=== PATIENT | female | born 1965 | race African-American/Black ===

== ENCOUNTER 2017-04-04 17:17 | Emergency (ER) | payer BC ==
--- NOTE | ~2017-04-04 | CR181 ---
[facility] A Service of [facility] & [facility] RADIOLOGY TEXT RESULTS PATIENT: JEROME BERTRAND LOCATION: [facility] : 65 UNIT #: [id number] AGE: [address]: Emile Myles MD SEX: F ORDER DR: [id number] [facility] [address] [place], [place] [address] [id number] E MR#: [id number] Acc #: [id number] NAME: JEROME BERTRAND : 1965 SEX: F STUDY DATE/TIME: 04/04/2017 20:56 UNIT: [facility] ROOM: STUDY DESCRIPTION: CR Lumbar Spine 2 or 3 Views Attending Physician: Emile Myles M.D. Ordering Physician: Emile Myles M.D. Primary Care Physician: Lelo Aceves M.D. MEDICAL IMAGING REPORT This report is preliminary unless electronic signature is present EXAM Lumbar spine series, 04/04/2017. HISTORY Lumbar spine pain, pain going through the right leg. Fell. Symptoms began December. TECHNIQUE AP and 2 lateral views of the lumbar spine are presented. Comparison 12/28/2016. FINDINGS Five lumbar-type vertebral segments with minimal levoscoliosis centered at the L3 level. New approximately 4 mm anterolisthesis L4 on L5. No acute fracture is clearly seen. There are moderate to marked facet degenerative changes at L4 - L5 and L5 - S1 with mild to moderate disc space narrowing L4-L5 and L5-S1. I favor that the anterolisthesis is degenerative in etiology. If it would assist in management, the spinal canal and neural foraminal contents could best be further evaluated with MRI if the patient is a candidate or CT. The vertebral body heights are normal. Other intervertebral disc space heights are normal. Again noted is a sclerotic change in the medial left iliac bone along the sacroiliac joints. No significant change in appearance from 12/28/2016 but etiology is unclear. I see no periosteal reaction or bony destruction. In the absence of risk factors, this may be a reflection of asymmetric degenerative change or sequelae of prior sacroiliitis. Neoplastic disease felt less likely though not strictly excluded. As recommended on prior study, consider further evaluation with radionuclide bone scan. Comparison with any more remote imaging would be useful if available to assess for prolonged stability. Visualized lower thoracic spine unremarkable. Visualized lung bases clear. Bowel gas pattern unremarkable. [facility] A Service of [facility] & [facility] RADIOLOGY TEXT RESULTS PATIENT: JEROME BERTRAND LOCATION: [facility] [place] [facility] #: [id number] : 65 UNIT #: [id number] AGE: [address]: Emile Myles MD SEX: F ORDER DR: Dictated by... Yontaan Rahman M.D. THIS IS AN ELECTRONICALLY VERIFIED REPORT Yonatan Rahman M.D. at 04/05/2017 7:52 PM Makenna TD: 04/04/2017 22:24 JOB #: [id number] MEDICAL IMAGING REPORT Page 1 of 1 COPY
--- NOTE | ~2017-04-04 | CR206 ---
[facility] A Service of [facility] & [facility] RADIOLOGY TEXT RESULTS PATIENT: JEROME BERTRAND LOCATION: [facility] : 65 UNIT #: [id number] AGE: [address]: Emile Myles MD SEX: F ORDER DR: [id number] [facility] [address] [place], [place] [address] [id number] E MR#: [id number] Acc #: [id number] NAME: JEROME BERTRAND : 1965 SEX: F STUDY DATE/TIME: 04/04/2017 20:55 UNIT: [facility] ROOM: STUDY DESCRIPTION: CR Pelvis 1 or 2 Views Attending Physician: Emile Myles M.D. Ordering Physician: Emile Myles M.D. Primary Care Physician: Lelo Aceves M.D. MEDICAL IMAGING REPORT This report is preliminary unless electronic signature is present EXAM AP radiograph pelvis, 04/04/2017 HISTORY Trauma. Fell. Pain going through the right leg. FINDINGS AP radiograph of the pelvis is presented. Comparison 12/05/2016. No traumatic fracture or malalignment. Mild narrowing left hip joint space. The visualized proximal femurs are intact. Degenerative changes in the lower lumbar spine. Sclerotic change in the left ilium along the sacroiliac joint. Stable appearance. In absence of risk factors, this is favored to be a reflection of degenerative change in the sacroiliac joint and/or sequelae of prior sacral ileitis. Correlate with history. No change from November 2016 which would favor a benign etiology. If further imaging assessment is felt clinically warranted, radionuclide bone scan could be pursued. Dictated by... Yonatan Rahman M.D. THIS IS AN ELECTRONICALLY VERIFIED REPORT Yonatan Rahman M.D. at 04/05/2017 7:52 PM Makenna TD: 04/04/2017 22:19 JOB #: [id number] MEDICAL IMAGING REPORT Page 1 of 1 COPY
[2017-04-04 20:28] LABS: URINE SOURCE CLEAN CATCH
[2017-04-04 20:40] LABS: URINE APPEARANCE CLEAR; URINE BILIRUBIN NEG (NEG); URINE BLOOD NEG (NEG); URINE COLOR YELLOW; URINE GLUCOSE NEG (NEG); URINE KETONE NEG (NEG); URINE LEUKOCYTE ESTERASE NEG (NEG); URINE NITRATE NEG (NEG); URINE PROTEIN NEG (NEG); URINE SPECIFIC GRAVITY 1.008 (1.003-1.035); URINE UROBILINOGEN 0.2 MG/DL (NEG)
[2017-04-04 20:44] LABS: CULTURE INDICATED? NO
== END 2017-04-04 21:55 | disposition home or self-care (01) ==
LOC: CED 17:17
PROVIDERS: Emergency Medicine
DX: S39.012A Strain of muscle, fascia and tendon of lower back, initial encounter (principal); F17.200 Nicotine dependence, unspecified, uncomplicated; Z88.2 Allergy status to sulfonamides; Z88.1 Allergy status to other antibiotic agents; Z88.6 Allergy status to analgesic agent; X58.XXXA Exposure to other specified factors, initial encounter
CPT/HCPCS: 72100; 72170; 81003; 84703; 96372; 99284; J1885